=== PATIENT | female | born 1985 | race Caucasian/White ===

== ENCOUNTER 2017-04-16 15:04 | Observation (INO) ==
--- NOTE | 2017-04-16 15:51 | Emergency Department Note ---
Disposition Clinical Impression: Fecal impaction Constipation Qualifiers: Constipation type: unspecified constipation type Qualified Code(s): K59.00 - Constipation, unspecified Disposition: Admitted As Inpatient Condition: Good Time of Disposition: 19:27 Abdominal Pain HPI - General Chief Complaint: ED General Medical Stated Complaint: unable to urinate// unable to have a BM Time Seen by Provider: 04/16/17 15:13 Source: patient Mode of arrival: ambulatory Limitations: no limitations Nursing Notes Reviewed: Yes Vital Signs Reviewed: Yes - History of Present Illness HPI Narrative: Patient is a 32-year-old female with past medical history of chronic constipation. She states that ever since she was a little girl, she has had trouble with bowel movements. If she does not make herself go every 2-3 days, she develops a large stool burden and then is unable to pass large stool ball. She does not follow with a specialist right now. She only takes MiraLAX occasionally. Over the past 2-3 days, patient says "I forgot to make myself have a bowel movement because I was busy." Today, she felt that she needed to use the bathroom and says that she feels like she is trying to pass a softball size stool. She tried digital impaction herself for several hours and was then unable to break up the stool. She also tried Ex-Lax, enema. She did not have any relief with this as well. She states that she has not been able to urinate over the past 24 hours because of being so constipated. She is actively crying on exam and very anxious. She denies any other fevers, chest pain, shortness of breath. She has generalized abdominal discomfort and is also had a couple episodes of nausea and vomiting. She says that she had a similar episode of this in the past and had to come to the ED. At that time, she had an enema milk of molasses and was able to pass a large stool ball but in the process passed out and had a rectal tear after the visit due to passing such a large stool. She says that yesterday while trying to bear down, she had a episode of syncope while on the toilet. Pain Scale: 10 - Related Data Home Medications Medication Instructions Recorded Confirmed No Known Home Drugs 04/16/17 04/16/17 Allergies Allergy/AdvReac Type Severity Reaction Status Date / Time iron AdvReac Vomiting Verified 08/09/15 06:13 All systems ED: reviewed and negative except as stated. Constitutional: Denies: fever Cardiovascular: Denies: chest pain, palpitations Respiratory: Denies: cough, dyspnea Gastrointestinal: Reports: abdominal pain, nausea, vomiting, constipation. Denies: diarrhea Genitourinary: Reports: other (Inability to urinate). Denies: urgency Musculoskeletal: Denies: back pain Integumentary: Denies: rash Neurological: Denies: headache Abdominal Pain PMH - Past Medical History Medical history: Reports: non-contributory Female Surgical History: Reports: [employer] history: Reports: no [employer] history Psychiatric history: Reports: no psych history - Social History Smoking status: Never smoker Alcohol use: Reports: none Drug use: Reports: none Physical Exam - General Limitations: no limitations General appearance: alert, anxious, other (Anxious and crying on exam) - Head Head exam: atraumatic, normocephalic, normal inspection - Eye Eye exam: Present: normal appearance, PERRL, EOMI - ENT ENT exam: normal exam, normal oropharynx, mucous membranes moist - Neck Neck exam: Present: normal inspection, full ROM, trachea midline - Respiratory Respiratory exam: Present: normal lung sounds bilaterally - Cardiovascular Cardiovascular exam: Present: regular rate, normal rhythm, normal heart sounds - Abdominal Exam Abdominal exam: Present: tenderness (Mild generalized tenderness with moderate tenderness and appreciable firmness in the middle lower abdomen) - Rectal Exam Rectal exam: Present: deferred - Extremities Exam Extremities exam: Present: normal inspection, full ROM - Neurological Exam Neurological exam: Present: alert, oriented X3 - Psychiatric Psychiatric exam: Present: anxious - Skin Skin exam: Present: warm, dry, intact, normal color Course Course Narrative: Vitals within normal limits. Physical exam shows an anxious patient with Mild generalized tenderness with moderate tenderness and appreciable firmness in the middle lower abdomen. Digital disimpaction was offered to the patient but she refused. I also offered an enema to the patient and she refused this as well. I discussed that it was probably necessary for digital disimpaction since she is describing a large stool burden that she cannot pass. She says she understood this but did not want to go through that kind of pain. We discussed straight cathetering her to get urine out and then reassessing. She was workup for this plan. We will also obtain a KUB to assess stool burden. Patient was also offered head CT scan by Dr. Mckeon due to syncope and complains of nausea and vomiting but she refused this after discussing risks and benefits. 16:16 patient reassessed after straight catheter. Tach stated that she was only able to get a small amount of urine out. Bedside ultrasound was performed and bladder was collapsed with no residual urine. Patient to do that she did not want pain medication but that she did want topical lidocaine to apply to her rectum to see if this will help with her pain. She declined any other pain medication. She is also still declining digital disimpaction. Currently waiting on KUB and then will reassess. Topical lidocaine has been ordered and patient stated that she will apply this herself. 17:30 XR shows No evidence of bowel obstruction. Significant amount of retained fecal material throughout the colon which is nonspecific but can be seen with constipation. Patient reasssessed. She was willing to try rectal disimpaction but says "she needs time to prepare." Currently waiting on nursing staff to contact me when patient is ready. 18:21 I tried digital disimpaction but was unable to reach the majority of the stool burden. There is a large amount of solid stool but is higher that would block any red rubber tube that could be used for administering milk of molasses enema. I discussed admission to the patient for possible surgical/or management under anesthesia. She was agreeable with this plan. 19:26 Dr. Chaparro accepted. KUB X-Ray 04/16/17 15:33 IMPRESSION: No evidence of bowel obstruction. Significant amount of retained fecal material throughout the colon which is nonspecific but can be seen with constipation. D/ / Varinder Zuleta MD / Varinder Zuleta MD Interpreting Provider: Varinder Zuleta MD Vital Signs Temperature 98.2 F 04/16/17 15:09 Pulse Rate 90 04/16/17 15:09 Respiratory Rate 18 04/16/17 15:09 Blood Pressure 126/60 04/16/17 15:09 O2 Sat by Pulse Oximetry 97 04/16/17 15:09 Temperature 98.2 F 04/16/17 20:18 Pulse Rate 61 04/16/17 20:18 Respiratory Rate 15 04/16/17 20:18 Blood Pressure 102/64 04/16/17 20:18 O2 Sat by Pulse Oximetry 96 04/16/17 20:18 Oxygen Delivery Oxygen Delivery Room Air Abdominal Pain - MDM Narrative Medical decision making narrative: Vitals within normal limits. Physical exam shows an anxious patient with Mild generalized tenderness with moderate tenderness and appreciable firmness in the middle lower abdomen. Digital disimpaction was offered to the patient but she refused. I also offered an enema to the patient and she refused this as well. I discussed that it was probably necessary for digital disimpaction since she is describing a large stool burden that she cannot pass. She says she understood this but did not want to go through that kind of pain. We discussed straight cathetering her to get urine out and then reassessing. She was workup for this plan. We will also obtain a KUB to assess stool burden. Patient was also offered head CT scan by Dr. Mckeon due to syncope and complains of nausea and vomiting but she refused this after discussing risks and benefits. 16:16 patient reassessed after straight catheter. Tach stated that she was only able to get a small amount of urine out. Bedside ultrasound was performed and bladder was collapsed with no residual urine. Patient to do that she did not want pain medication but that she did want topical lidocaine to apply to her rectum to see if this will help with her pain. She declined any other pain medication. She is also still declining digital disimpaction. Currently waiting on KUB and then will reassess. Topical lidocaine has been ordered and patient stated that she will apply this herself. 17:30 XR shows No evidence of bowel obstruction. Significant amount of retained fecal material throughout the colon which is nonspecific but can be seen with constipation. Patient reasssessed. She was willing to try rectal disimpaction but says "she needs time to prepare." Currently waiting on nursing staff to contact me when patient is ready. 18:21 I tried digital disimpaction but was unable to reach the majority of the stool burden. There is a large amount of solid stool but is higher that would block any red rubber tube that could be used for administering milk of molasses enema. I discussed admission to the patient for possible surgical/or management under anesthesia. She was agreeable with this plan. 19:26 Dr. Chaparro accepted. - Medical Records Medical records reviewed: Yes I reviewed the patient's medical records. - Lab Data Lab results reviewed: Yes I reviewed the patient's lab results. Result diagrams: 04/16/17 18:30 04/16/17 18:30 Lab Results 04/16/17 04/16/17 04/16/17 Range/Units 16:03 16:03 18:30 WBC 6.9 (4.3-11.1) K/mcL RBC 4.31 (3.82-4.97) M/mcL Hgb 12.9 (11.5-15.4) g/dL Hct 37.7 (35.3-44.9) % MCV 87.5 (83.0-100.0) fL MCH 29.9 (28.0-33.3) pg MCHC 34.2 (31.6-35.5) g/dL RDW 11.5 (11.5-14.5) % Plt Count 189 (140-400) K/mcL MPV 11.6 (9.4-12.4) fL Immature Gran % 0.1 (0-4) % Seg Neutrophils % 67.7 % Lymphocytes % 26.9 % Monocytes % 3.4 % Eosinophils % 1.5 % Basophils % 0.4 % Neutrophils # 4.6 (1.6-8.9) K/mcL Lymphocytes # 1.8 (0.6-4.6) K/mcL Monocytes # 0.2 (0.0-1.3) K/mcL Eosinophils # 0.1 (0.0-0.6) K/mcL Basophils # 0.0 (0.0-0.2) K/mcL PT (9.4-12.1) Seconds INR APTT (26.0-36.0) Seconds Sodium (136-145) mEq/L Potassium (3.5-4.5) mEq/L Chloride (98-109) mEq/L Carbon Dioxide (19-29) mEq/L BUN (7-20) mg/dL Creatinine (0.57-1.11) mg/dL Est GFR ( Amer) (> 60) Est GFR (Non-Af Amer) (> 60) BUN/Creatinine Ratio (6-26) Glucose (70-99) mg/dL Calculated Osmolality (280-300) Calcium (8.6-10.8) mg/dL Urine Color Dark Yellow (Yellow) Urine Clarity Clear (Clear) Urine pH 6.0 (5.0-8.0) pH Units Ur Specific [place] > 1.030 H (1.010-1.025) Urine Protein Negative (Neg-Trace) mg/dL Urine Glucose (UA) Normal (Normal) mg/dL Urine Ketones Negative (Negative) mg/dL Urine Blood Negative (Negative) Urine Nitrite Negative (Negative) Urine Bilirubin Small H (Negative) Urine Urobilinogen Normal (Normal) mg/dL Ur Leukocyte Esterase Negative (Negative) Ur Culture Indicated? NO (NO) Urine Test Negative (Negative) 04/16/17 04/16/17 Range/Units 18:30 18:30 WBC (4.3-11.1) K/mcL RBC (3.82-4.97) M/mcL Hgb (11.5-15.4) g/dL Hct (35.3-44.9) % MCV (83.0-100.0) fL MCH (28.0-33.3) pg MCHC (31.6-35.5) g/dL RDW (11.5-14.5) % Plt Count (140-400) K/mcL MPV (9.4-12.4) fL Immature Gran % (0-4) % Seg Neutrophils % % Lymphocytes % % Monocytes % % Eosinophils % % Basophils % % Neutrophils # (1.6-8.9) K/mcL Lymphocytes # (0.6-4.6) K/mcL Monocytes # (0.0-1.3) K/mcL Eosinophils # (0.0-0.6) K/mcL Basophils # (0.0-0.2) K/mcL PT 13.0 H (9.4-12.1) Seconds INR 1.2 APTT 33.4 (26.0-36.0) Seconds Sodium 139 (136-145) mEq/L Potassium 3.6 (3.5-4.5) mEq/L Chloride 108 (98-109) mEq/L Carbon Dioxide 21 (19-29) mEq/L BUN 9 (7-20) mg/dL Creatinine 0.62 (0.57-1.11) mg/dL Est GFR ( Amer) > 60 (> 60) Est GFR (Non-Af Amer) > 60 (> 60) BUN/Creatinine Ratio 15 (6-26) Glucose 97 (70-99) mg/dL Calculated Osmolality 287 (280-300) Calcium 9.3 (8.6-10.8) mg/dL Urine Color (Yellow) Urine Clarity (Clear) Urine pH (5.0-8.0) pH Units Ur Specific [place] (1.010-1.025) Urine Protein (Neg-Trace) mg/dL Urine Glucose (UA) (Normal) mg/dL Urine Ketones (Negative) mg/dL Urine Blood (Negative) Urine Nitrite (Negative) Urine Bilirubin (Negative) Urine Urobilinogen (Normal) mg/dL Ur Leukocyte Esterase (Negative) Ur Culture Indicated? (NO) Urine Test (Negative) - Radiology Data Radiology results reviewed: Yes I reviewed the patient's radiology results. KUB X-Ray 04/16/17 15:33 IMPRESSION: No evidence of bowel obstruction. Significant amount of retained fecal material throughout the colon which is nonspecific but can be seen with constipation. D/ / Varinder Zuleta MD / Varinder Zuleta MD Interpreting Provider: Varinder Zuleta MD S.Pet[facility] - [place] Situation: Demographics, MOA Background: Presenting Complaint, Relevant PMH, Meds, & Allergies Assessment: Vital Signs, Course and respsone to treatment, Exam Concerns, Patient/Family Expectation, Pertinant Lab Results, Outstanding Labs Recommendation: Barrier(s) to disposition, Recommendation based on pending studies, treatments, or consults S.B.APavan Report Given to: Dr. Shankar Spivey Repor Time: 19:28 Attestation Statement - Attestation Attestation: I, Florencio Mckeon, examined this patient and my medical decision-making was reviewed with the ARCHAEOLOGIST/PA/Advanced Practice Nurse/Resident Physician. I agree with the documented findings, disposition and treatment plan as described except to the extent set forth below. 32-year-old female presents with concerns of constipation. Patient states that she has had similar pain multiple times in the past when she has been constipated. She has had to be admitted once before this for disimpaction. It is extremely anxious in the emergency department and feels like she has to have a bowel movement, she states that she has been unable to urinate because of the pressure in her lower abdomen. Patient is significantly concerned about possible urinary tract infection however she denies fever, chills, dysuria over the past few days.. X-ray of the abdomen shows a large amount of stool. Rectal exam performed by the resident reveals a large equal impaction just proximal to that is reachable with finger. Patient was significantly anxious and tearful during the evaluation. Patient will require further stool softeners and possible disimpaction under anesthesia. Patient admitted to the hospitalist for further care
[2017-04-16] MEDS ORDERED: Lidocaine TOPICAL Soln 50 ML BOTTLE TP ONE (16:14)
[2017-04-16] MEDS ORDERED: Lidocaine Jelly 6 ml Syringe TP ONE (16:35)
[2017-04-16] MEDS ORDERED: diazePAM 10 MG/2 ML SYRINGE IVP ONE (16:37)
[2017-04-16 16:39] LABS: Bilirubin,Urine Small (Negative); Blood,Urine Negative (Negative); Clarity,Urine Clear (Clear); Color,Urine Dark Yellow (Yellow); Glucose,Urine (UA) Normal (Normal); Ketones,Urine Negative (Negative); Leukocyte Esterase,Urine Negative (Negative); Nitrite,Urine Negative (Negative); Protein,Urine Negative (Neg-Trace); Specific Gravity,Urine > 1.030 (1.010-1.025); Urobilinogen,Urine Normal (Normal)
[2017-04-16] MEDS ORDERED: *HR* LORazepam 2 MG/ML VIAL IVP ONE (16:58)
[2017-04-16] MEDS ORDERED: Ondansetron 4 MG/2 ML VIAL IVP ONE (16:58)
[2017-04-16] MEDS ORDERED: diazePAM 10 MG/2 ML SYRINGE IVP STA (17:02)
[2017-04-16] MEDS ORDERED: Lidocaine Viscous Oral Soln 15 ML SOLUTION MM ONE (17:05)
[2017-04-16 18:48] LABS: Basophils % 0.4 %; Eosinophils # 0.1 K/mcL (0.0-0.6); Eosinophils % 1.5 %; Hematocrit 37.7 % (35.3-44.9); Hemoglobin 12.9 g/dL (11.5-15.4); Immature Granulocytes % 0.1 % (0-4); Lymphocytes # 1.8 K/mcL (0.6-4.6); Lymphocytes % 26.9 %; Mean Corpuscular HGB Conc 34.2 g/dL (31.6-35.5); Mean Corpuscular Hemoglobin 29.9 pg (28.0-33.3); Mean Corpuscular Volume 87.5 fL (83.0-100.0); Mean Platelet Volume 11.6 fL (9.4-12.4); Monocytes # 0.2 K/mcL (0.0-1.3); Monocytes % 3.4 %; Neutrophils # 4.6 K/mcL (1.6-8.9); Platelet Count 189 K/mcL (140-400); Red Blood Count 4.31 M/mcL (3.82-4.97); Red Cell Distribution Width 11.5 % (11.5-14.5); Segmented Neutrophils % 67.7 %
[2017-04-16 18:52] LABS: INR 1.2
[2017-04-16 18:54] LABS: Activated Partial Thrombo Time 33.4 Seconds (26.0-36.0)
[2017-04-16 18:55] LABS: BUN/Creatinine Ratio 15 (6-26); Blood Urea Nitrogen 9 mg/dL (7-20); Calcium 9.3 mg/dL (8.6-10.8); Carbon Dioxide 21 mEq/L (19-29); Chloride 108 mEq/L (98-109); Glucose 97 mg/dL (70-99); Osmolality,Calculated 287 (280-300); Potassium 3.6 mEq/L (3.5-4.5); Sodium 139 mEq/L (136-145); eGFR For African Americans > 60 (> 60); eGFR For Non-African Americans > 60 (> 60)
[2017-04-16] MEDS ORDERED: Ketorolac 15 MG/ML VIAL IVP ONE (21:15)
[2017-04-16] MEDS ORDERED: Ondansetron 4 MG/2 ML VIAL IVP PRN (21:22)
[2017-04-16] MEDS ORDERED: Lactulose Oral Soln 20 GM/30 ML UDC PO PRN (21:25)
--- NOTE | 2017-04-16 21:30 | Internal Med History&Physical ---
Date of Encounter: 04/16/17 Time of Encounter: 21:27 Assessment and Plan (1) Fecal impaction Current visit: Yes Status: Acute Patient has fecal impaction. Repeated attempts at manual disinfection failed. Patient has been receiving stool softeners over the past 4 days without response. Patient has some nausea, denies any vomiting. Patient is passing gas. No clinical or radiological evidence of bowel obstruction. Patient is refusing Golytely or any more will softeners. I will consult gastroenterology for their input regarding disimpaction under sedation. Avoid opiates Internal Medicine - H&P: HPI Chief complaint: constipation History of present illness: Ms. Arriaga is a 32 year old female with long history of constipation on stool softners regularly and moves her bowels every 2 to 4 days. Patient presents to the emergency room today with constipation. She had not had a bowel movement in 9 days. Patient continues to pass gas. She has some nausea only during straining while attempting to have a bowel movement but no otherwise nausea. She denies any vomiting. She also abdominal discomfort in the lower abdomen. Patient mentioned that she was busy with her kids and has not taken miralax for the past 2 weeks. She started taking stool softener's and suppositories at home during the past 4 days without improvement. manual disimpaction and enemas in the emergency room failed. Past Med Surg Social Fam HX - Past Medical History Medical history: non-contributory Psychiatric history: no psych history - Past Surgical History Surgical History: - Social History Smoking Status: Never smoker Smokeless Tobacco Status: No Alcohol use: none Drug use: none - Family History Maternal Grandmother Living Status: Cause of : colon cancer Mother Living Status: Still Living Hx Family Cardiac Disorders: Yes (mitral valve prolapse) Internal Medicine - H&P: Meds No Known Home Drugs 04/16/17 [History] Allergies iron Adverse Reaction (Verified 08/09/15 06:13) Vomiting All Systems PM: A 10-system review of systems was performed and is negative for pertinent findings except as documented above in the HPI. - Constitutional Additional comments: 10 point review of systems is negative except for HPI - Constitutional Vitals: Temp Pulse Resp BP Pulse Ox 98.2 F 61 15 102/64 96 04/16/17 20:18 04/16/17 20:18 04/16/17 20:18 04/16/17 20:18 04/16/17 20:30 Exam: Gen.: patient is alert oriented times 3 not in distress cardiac: Normal S1, S2, no additional sounds or murmurs chest: Clear to auscultation Abdomen: Soft, some tederness in LLQ. No rebound tenderness guarding or rigidity. lower extremity Lax calf muscles no swelling Neuro: no focal deficits Internal Med - H&P Results - Labs CBC & Chem 7: 04/16/17 18:30 04/16/17 18:30
[2017-04-16] MEDS: 0.9 % Sodium Chloride 1,000 ML IVC SCH (22:22)
[2017-04-17] MEDS: Ketorolac 15 MG/ML VIAL IVP PRN ×3 (03:43→17:02)
--- NOTE | 2017-04-17 10:34 | Internal Med Progress Note ---
Date of Encounter: 04/17/17 Time of Encounter: 10:32 - Assessment and plan (1) Fecal impaction Current Visit: Yes Status: Acute Assessment and plan: Patient has fecal impaction. Repeated attempts at manual disinfection failed. Patient has been receiving stool softeners over the past 4 days without response. Patient has some nausea, denies any vomiting. Patient is passing gas. No clinical or radiological evidence of bowel obstruction. Patient is refusing Golytely or any more will softeners. I will consult gastroenterology for their input regarding disimpaction under sedation. Avoid opiates I have discussed the case with Dr. Shah this morning. He will be evaluating patient. Patient still has no bowel movement. Still passing gas. No vomiting. Bowel sounds are present. continue hydration - Subjective Interval history: Patient seen and examined. No bowel movements yet. No vomiting. She is passing gas. Await gastroenterology recommendations. - Constitutional Vitals: Temp Pulse Resp BP Pulse Ox 97.9 F 74 16 90/51 96 04/17/17 06:36 04/17/17 06:36 04/17/17 06:36 04/17/17 06:36 04/17/17 06:36 Exam: Gen.: patient is alert oriented times 3 not in distress. Cardiac: normal S1 S2 no additional sounds or murmurs chest: fair air entry. no active wheezing. No crackles or bronchial breathing. abdomen: minimal tenderness in lower left abdomen normal bowel sounds neuro: no focal deficit Internal Medicine: Result - Labs CBC & Chem 7: 04/16/17 18:30 04/16/17 18:30 - ABG Interpretation ABG results: PT/INR, D-dimer PT 13.0 Seconds (9.4-12.1) H 04/16/17 18:30 Consult Discharge Plan - Plan Referrals: NO,PCP [Primary Care Provider] -
--- NOTE | 2017-04-17 11:55 | Gastroenterology Consult Note ---
<BautistaHarvey Haines - Last Filed: 04/17/17 11:51> Date of Encounter: 04/17/17 Time of Encounter: 10:30 - Assessment and plan (1) Fecal impaction Status: Acute Assessment and plan: Plan for disimpaction today with sedation. Keep NPO. (2) Constipation Status: Acute Assessment and plan: Start a daily fiber supplement and use MiraLAX up to twice a day. Use fiber and Miralax daily for 3-5 days, if symptoms are not improved, add in second dose of Miralax daily. Follow up in GI office 2 weeks after dicharge. Qualifiers: Constipation type: unspecified constipation type Qualified Code(s): K59.00 - Constipation, unspecified - Time Spent With Patient Total time spent is greater than 50% in coordination of care (as documented) at patient's floor/unit and/or counseling patient: GI History of Present Illness - Data of Consult Patient: new to practice Consult date: 04/17/17 Requesting Physician: Samantha Barrios - Consult Narrative Reason for consult: Fecal impaction History of present illness: Ms. Arriaga is a 32 year old female with PMHx of constipation on stool softeners and has BM every 2-4 days. She presented to the ED with c/o constipation and states she had not had BM in 9 days, but is passing gas. She has some nausea only during straining while attempting to have a bowel movement but no otherwise nausea. She denies vomiting. Patient mentioned that she was busy with her kids and has not taken Miralax for the past 2 weeks. She started taking stool softener's and suppositories at home during the past 4 days without improvement. Manual disimpaction and enemas in the emergency room failed. Patient is refusing Golytely or any more stool softeners. Procedures: None NSAIDs: None Anticoagulation: None Past Med Surg Social Fam HX - Past Medical History Medical history: non-contributory Psychiatric history: no psych history - Past Surgical History Surgical History: - Social History Smoking Status: Never smoker Smokeless Tobacco Status: No Alcohol use: none Drug use: none - Family History Maternal Grandmother Living Status: Cause of : colon cancer Mother Living Status: Still Living Hx Family Cardiac Disorders: Yes (mitral valve prolapse) - Gastrointestinal Gastrointestinal: Present: as per HPI - Constitutional Constitutional: as per HPI - EENT Eyes: as per HPI Ears: Present: as per HPI Nose, mouth and throat: Present: as per HPI - Cardiovascular Cardiovascular ROS: Present: as per HPI - Respiratory Respiratory IM: Present: as per HPI - Genitourinary Genitourinary: Absent: change in color, Urinary frequency - Neurological ROS Neurological GI: Present: as per HPI - Hematologic/Lymphatic Hematologic/Lymphatic pediatric: Present: as per HPI - Musculoskeletal Musculoskeletal ROS GI: Present: as per HPI - Integumentary Integumentary GI: Present: as per HPI - Psychiatric ROS Psychiatric GI: Present: as per HPI - Endocrine Endocrine IM: Present: as per HPI - Constitutional Vitals: Temp Pulse Resp BP Pulse Ox 97.4 F L 61 16 102/58 94 04/17/17 10:39 04/17/17 10:39 04/17/17 10:39 04/17/17 10:39 04/17/17 10:39 General appearance: Present: cooperative, A&O X 3, no acute distress, answers questions appropriately - Head Head exam: Present: atraumatic, normocephalic - Eye Eye exam: Present: normal appearance, sclera anicteric - ENT ENT exam: Present: mucous membranes dry - Neck Neck exam general surgery: Present: normal inspection, trachea midline - Respiratory Respiratory exam: Present: CTAB. Absent: rales, rhonchi, wheezes - Cardiovascular Cardiovascular exam: Present: RRR, +S1, +S2 - GI/Abdominal GI/Abdominal exam: Present: soft, tenderness (LLQ), no peritoneal signs. Absent : distended, firm, guarding - Rectal Rectal exam: Present: deferred - Extremities Exam Extremities exam: Present: warm - Neurological Exam Neurological exam: Present: no focal deficits - Psychiatric Psychiatric exam: Present: normal affect, normal mood - Skin Skin exam: Present: dry, intact, normal color, warm Results - Labs CBC & Chem 7: 04/16/17 18:30 04/16/17 18:30 Labs: Last Result Calcium 9.3 mg/dL (8.6-10.8) 04/16/17 18:30 Entire Visit Hgb 12.9 g/dL (11.5-15.4) 04/16/17 18:30 Hct 37.7 % (35.3-44.9) 04/16/17 18:30 PT 13.0 Seconds (9.4-12.1) H 04/16/17 18:30 - ABG ABG results: PT/INR, D-dimer PT 13.0 Seconds (9.4-12.1) H 04/16/17 18:30 Consult Discharge Plan - Plan Instructions: Laxative, Stimulant (By mouth), Polyethylene Glycol 3350 (By mouth), Constipation (DC), High Fiber Diet (DC) Additional Instructions: Follow-up as instructed for new primary care provider Referrals: NO,PCP [Primary Care Provider] - (Please call the physician referral line at [phone] and scheduled an appointment in 5-7 days.) Prescriptions: Ibuprofen [Motrin] 600 mg PO Q8HR PRN #30 tab PRN Reason: Pain Calcium Polycarbophil [Fibercon] 1,250 mg PO DAILY #60 tablet Hydrocortisone Acetate [Anucort-HC] 25 mg RC BID #28 supp.rect Ondansetron HCl 4 mg PO Q6H PRN #12 tablet PRN Reason: Nausea And Vomiting Peg 3350/Na Sulf,Bicarb,Cl/KCl [Golytely Packet] 1 each PO DAILY #10 powd.pack Polyethylene Glycol 3350 [MiraLAX Powder Bulk 17.9 Oz] 1 scoop PO DAILY #510 gm <Libertad Shah - Last Filed: 04/23/17 13:47> Date of Encounter: 04/17/17 Time of Encounter: 11:00 - Time Spent With Patient Total time spent is greater than 50% in coordination of care (as documented) at patient's floor/unit and/or counseling patient: GI History of Present Illness - Data of Consult Requesting Physician: Samantha Barrios - Consult Narrative History of present illness: Ms. Arriaga is a 32 year old female - Constitutional Vitals: Temp Pulse Resp BP Pulse Ox 98.1 F 51 16 92/55 96 04/18/17 07:21 04/18/17 07:21 04/18/17 07:21 04/18/17 07:21 04/18/17 07:21 Results - Labs CBC & Chem 7: 04/16/17 18:30 04/16/17 18:30 Labs: Last Result Calcium 9.3 mg/dL (8.6-10.8) 04/16/17 18:30 Entire Visit Hgb 12.9 g/dL (11.5-15.4) 04/16/17 18:30 Hct 37.7 % (35.3-44.9) 04/16/17 18:30 PT 13.0 Seconds (9.4-12.1) H 04/16/17 18:30 - ABG ABG results: PT/INR, D-dimer PT 13.0 Seconds (9.4-12.1) H 04/16/17 18:30 - Attending Attestation I examined this patient and my medical decision-making was reviewed with the COLLAR FELLER/PA/Advanced Practice Nurse/Resident Physician. I agree with the documented findings, disposition and treatment plan as described except to the extent set forth below.
--- NOTE | 2017-04-17 12:34 | Discharge Summary ---
Date of Encounter: 04/17/17 Time of Encounter: 12:32 - Discharge Diagnosis (1) Fecal impaction Priority: Primary Status: Acute - Discharge Medications Prescriptions: Ondansetron [Zofran] 4 mg PO Q6HR PRN #10 tab PRN Reason: Nausea Polyethylene Glycol 3350 [MiraLAX Powder Bulk 17.9 Oz] 1 scoop PO DAILY #510 gm Home Medications: Ondansetron [Zofran] 4 mg PO Q6HR PRN #10 tab 04/17/17 [Rx] Polyethylene Glycol 3350 [MiraLAX Powder Bulk 17.9 Oz] 1 scoop PO DAILY #510 gm 04/17/17 [Rx] Allergies/Adverse Reactions: Allergies iron Adverse Reaction (Verified 08/09/15 06:13) Vomiting Date of admission: 04/16/17 19:53 Primary care physician: PCP NO Consults: 04/16/17 21:22 Consult to Gastroenterology [CONS] Routine Consulting Provider: Gastroenterology Freida Reason for Consult: constipation. disimpaction under anesthesia? Call Completed: No 04/17/17 11:00 consult to honey producer [Consult to Nutrition] [CONS] Routine Comment: Consulting Provider: NUTRITION Reason for Dietary Consult: Diet Education - Patient Status Disposition: Home, Self-Care Condition: Good - Discharge Instructions Follow Up With: NO,PCP [Primary Care Provider] - Interval History: Patient has presented yesterday to the hospital with constipation. She has not had a bowel movement for 9 days. She is passing gas. No evidence bowel obstruction. Repeated attempts at taking laxatives at home, suppositories, manual disinfection in the emergency room failed. patient refuses to take any more stool softeners or golytely. Case has been discussed with Dr. Shah who will perform fecal infection under sedation today. Patient will only be discharged today if recommended by Dr. Shah after procedure. It was recommended to take Miralax up to 2 times a day. Fiber diet. Await further gastroenterology recommendations. Hospital course: Ms. Arriaga is a 32 year old female - Time Spent with Patient Total time spent providing and/or coordinating discharge services: - Constitutional Vitals: Temp Pulse Resp BP Pulse Ox 97.4 F L 61 16 102/58 94 04/17/17 10:39 04/17/17 10:39 04/17/17 10:39 04/17/17 10:39 04/17/17 10:39 Exam: Gen.: patient is alert oriented times 3 not in distress. Cardiac: normal S1 S2 no additional sounds or murmurs chest: fair air entry. no active wheezing. No crackles or bronchial breathing. abdomen: tenderness in LLQ neuro: no focal deficit
--- NOTE | 2017-04-17 14:35 | Anesthesia Evaluation PreOp ---
Date of Encounter: 04/17/17 Time of Encounter: 14:34 - Past History Planned Operation: sigmoid decompaction Cardiac History: Denies any Significant Hx Pulmonary History: Denies Any Significant HX TRANSIT MIX OPERATOR History: Denies Any Significant HX Other Medical History: Renal (medullary sponge kidney) Anesthesia History: No Prior Anesthetic Complications, Past Anesthesia (general anesthesia for C-S) Alcohol Use: none Drug use: none Medications and Allergies Ondansetron [Zofran] 4 mg PO Q6HR PRN #10 tab 04/17/17 [Rx] Polyethylene Glycol 3350 [MiraLAX Powder Bulk 17.9 Oz] 1 scoop PO DAILY #510 gm 04/17/17 [Rx] Allergies iron Adverse Reaction (Verified 08/09/15 06:13) Vomiting - Meds/Allergy Pre-op Review Medications Reviewed: Yes Allergies Reviewed: Yes Beta Blockers on Current Med List: No Anesthesia Results - Labs 04/16/17 18:30 04/16/17 18:30 Anesthesia Exam Last Vital Signs Temp 97.4 F L 04/17/17 14:27 Pulse 61 04/17/17 14:27 Resp 16 04/17/17 14:27 BP 119/71 04/17/17 14:27 Pulse Ox 98 04/17/17 14:27 Weight: 52 kg NPO (# of Hours): >>8 hrs - HEENT Pupil (Motor): Pupils equal, EOMI Mallampati: I Teeth: Normal, Prosthesis (permanent retainer) Oral Opening: Greater than 3 - TRANSIT MIX OPERATOR LOC: Oriented TRANSIT MIX OPERATOR Motor: Normal RUE, Normal LUE, Normal RLE, Normal LLE, Normal Face TRANSIT MIX OPERATOR Sensory: Normal: RUE, LUE, RLE, LLE, Face - Cardiac Rhythm: Regular Murmur: None - Pulmonary Breath Sounds: bilateral Clear Respiratory Effort: Symmetrical Anesthesia Assess/Plan ASA Score: 2 Modified [place] Scale for Level of Consciousness: Cooperative, oriented, and tranquil Anesthetic Plan: MAC Monitoring Plan: Standard Monitors Recovery Plan: PACU
[2017-04-17] MEDS ORDERED: SODIUM CHLORIDE/NAHCO3/KCL/PEG 4,000 ML SOLN.RECON PO SCH (15:15)
[2017-04-17] MEDS: *HR* Heparin 5,000 UNIT/ML VIAL SQ SCH (17:01)
[2017-04-17] MEDS: 0.9 % Sodium Chloride 1,000 ML IVC SCH ×2 (21:21→21:26)
[2017-04-18] MEDS: *HR* Heparin 5,000 UNIT/ML VIAL SQ SCH (06:38)
[2017-04-18] MEDS: 0.9 % Sodium Chloride 1,000 ML IVC SCH (06:42)
[2017-04-18 07:22] VITALS: BP 92/55
--- NOTE | 2017-04-18 09:30 | Discharge Summary ---
Date of Encounter: 04/18/17 Time of Encounter: 08:45 - Discharge Diagnosis (1) Fecal impaction Priority: Primary Status: Resolved Comments: s/p disimpaction under anesthesia per GI. (2) Constipation Priority: Secondary Status: Chronic Qualifiers: Constipation type: unspecified constipation type Qualified Code(s): K59.00 - Constipation, unspecified - Discharge Medications Prescriptions: Ibuprofen [Motrin] 600 mg PO Q8HR PRN #30 tab PRN Reason: Pain Calcium Polycarbophil [Fibercon] 1,250 mg PO DAILY #60 tablet Hydrocortisone Acetate [Anucort-HC] 25 mg RC BID #28 supp.rect Ondansetron HCl 4 mg PO Q6H PRN #12 tablet PRN Reason: Nausea And Vomiting Peg 3350/Na Sulf,Bicarb,Cl/KCl [Golytely Packet] 1 each PO DAILY #10 powd.pack Polyethylene Glycol 3350 [MiraLAX Powder Bulk 17.9 Oz] 1 scoop PO DAILY #510 gm Home Medications: Calcium Polycarbophil [Fibercon] 1,250 mg PO DAILY #60 tablet 04/18/17 [Rx] Hydrocortisone Acetate [Anucort-HC] 25 mg RC BID #28 supp.rect 04/18/17 [Rx] Ibuprofen [Motrin] 600 mg PO Q8HR PRN #30 tab 04/18/17 [Rx] Ondansetron HCl 4 mg PO Q6H PRN #12 tablet 04/18/17 [Rx] Peg 3350/Na Sulf,Bicarb,Cl/KCl [Golytely Packet] 1 each PO DAILY #10 powd.pack 04/18/17 [Rx] Polyethylene Glycol 3350 [MiraLAX Powder Bulk 17.9 Oz] 1 scoop PO DAILY #510 gm 04/18/17 [Rx] Allergies/Adverse Reactions: Allergies iron Adverse Reaction (Verified 08/09/15 06:13) Vomiting Date of admission: 04/16/17 19:53 Primary care physician: PCP NO Consults: 04/16/17 21:22 Consult to Gastroenterology [CONS] Routine Consulting Provider: Gastroenterology Freida Reason for Consult: constipation. disimpaction under anesthesia? Call Completed: No 04/17/17 11:00 consult to planning consultant [Consult to Nutrition] [CONS] Routine Comment: Consulting Provider: NUTRITION Reason for Dietary Consult: Diet Education Discharging clinician: Samantha Smith Anticipated date of discharge: 04/18/17 - Patient Status Disposition: Home, Self-Care Condition: Good Functional capacity at discharge: independent ambulation Overall status at discharge: patient is back to baseline - Discharge Instructions Follow Up With: NO,PCP [Primary Care Provider] - (Please call the physician referral line at [phone] and scheduled an appointment in 5-7 days.) Additional Instructions: Follow-up as instructed for new primary care provider - Diet and Activity Activity: increase activity as tolerated Diet: regular diet Hospital course: Ms. Arriaga is a 32 year old female with only past medical history of constipation. Patient presented to the emergency department chief complaint constipation. She had not had a bowel movement in 9 days and typically has one every 2-4 days. She was still flatulent and had nausea only while straining to have a bowel movement but otherwise did not have nausea. She denied any vomiting. She also complained of lower abdominal discomfort. Patient stating that she had been busy taking care of her 4 children and had not taken her MiraLAX for the past 2 weeks prior to presentation. Patient had started taking stool softeners and suppositories at home for the past 4 days prior to presentation without improvement. In the emergency department, manual disimpaction and enemas proved unsuccessful and the patient was admitted to the hospitalist service for further evaluation and management. KUB revealing large amount of fecal material without evidence of obstruction. GI was brought on board who performed a fecal disimpaction under anesthesia. Patient was then observed overnight and was able to tolerate a regular diet prior to discharge. She was sent on fiber, MiraLAX, and GoLYTELY as instructed. She was also given Zofran and annual court for her rectal irritation and friability. She had another large, hard bowel movement after her procedure. She was discharged home in stable condition with close outpatient follow-up recommended. ITS Impressions KUB X-Ray 04/16/17 15:33 IMPRESSION: No evidence of bowel obstruction. Significant amount of retained fecal material throughout the colon which is nonspecific but can be seen with constipation. D/ / Varinder Zuleta MD / Varinder Zuleta MD Interpreting Provider: Varinder Zuleta MD Fecal impaction impression: Impaction of stool. Recommendation: Daily MiraLAX and GoLYTELY prep for couple days to clean her out. - Time Spent with Patient Total time spent providing and/or coordinating discharge services: - Constitutional Vitals: Temp Pulse Resp BP Pulse Ox 98.1 F 51 16 92/55 96 04/18/17 07:21 04/18/17 07:21 04/18/17 07:21 04/18/17 07:21 04/18/17 07:21 General appearance: Present: A&O X 3, pleasant, no acute distress, answers questions appropriately - Head Head exam: Present: atraumatic, normocephalic - Eye Eye exam: Present: PERRL, conjuntiva pink, sclera anicteric Pupils: Present: PERRL - Neck Neck exam general surgery: Present: supple, trachea midline. Absent: lymphadenopathy - Respiratory Respiratory exam: Present: CTAB. Absent: accessory muscle use, rales, respiratory distress, rhonchi, wheezes - Cardiovascular Cardiovascular exam: Present: RRR, +S1, +S2. Absent: diastolic murmur, gallop, rubs, systolic murmur - GI/Abdominal GI/Abdominal exam: Present: normal bowel sounds, soft, tenderness (lower abd), no peritoneal signs. Absent: distended - Extremities Exam Extremities exam: Present: warm, radial pulses palpable and symetrical. Absent : calf tenderness, cyanotic, pedal edema - Neurological Exam Neurological exam: Present: alert, CN II-XII intact, normal gait, oriented X3, no focal deficits, strengths equal and symetr throughout. Absent: pronater drift, facial droop, speech deficit - Skin Skin exam: Present: dry, intact, normal color, warm
[2017-04-18] MEDS ORDERED: *HR* Propofol 500 MG/50 ML BOTTLE IVC ONE (11:03)
== END 2017-04-18 11:04 | disposition home or self-care (01) ==
LOC: 3BNU 15:04 → EMEROO 15:04 → 3BNU 19:31
PROVIDERS: ADMIT Hospitalist; ATTEND Nurse Practitioner Family

== ENCOUNTER 2018-03-04 09:51 | Inpatient (IN) ==
[2018-03-04] MEDS ORDERED: CeFAZolin Premix DUPLEX 2,000 MG/50 ML BAG IVPB ONE (10:29)
[2018-03-04] MEDS ORDERED: Famotidine 20 MG/2 ML VIAL IVP ONE (10:29)
[2018-03-04] MEDS ORDERED: Oxytocin 20 units/ LR 1000 mL 20 UNIT/1,000 ML BAG IVC ONE (10:29)
[2018-03-04] MEDS ORDERED: Ringers Solution, Lactated 1,000 ML IVC ONE (10:29)
[2018-03-04] MEDS ORDERED: Metoclopramide 10 MG/2 ML VIAL IVP ONE (10:29)
[2018-03-04] MEDS ORDERED: Ringers Solution, Lactated 1,000 ML IVC SCH (10:30)
[2018-03-04] MEDS ORDERED: Oxytocin 20 units/ LR 1000 mL 20 UNIT/1,000 ML BAG IVC SCH ×2 (10:30→15:28)
--- NOTE | 2018-03-04 10:46 | Anesthesia Evaluation PreOp ---
Date of Encounter: 03/04/18 Time of Encounter: 10:45 - Past History Planned Operation: Repeat Cardiac History: Denies any Significant Hx, Other (Anemia) Pulmonary History: Denies Any Significant HX PRODUCTION OPERATOR History: Denies Any Significant HX Other Medical History: Denies Any Significant HX Anesthesia History: No Prior Anesthetic Complications : Yes (39 weeks ) Test: Positive Alcohol Use: none Drug use: none Medications and Allergies Calcium Polycarbophil [Fibercon] 1,250 mg PO DAILY #60 tablet 04/18/17 [Rx] Hydrocortisone Acetate [Anucort-HC] 25 mg RC BID #28 supp.rect 04/18/17 [Rx] Ibuprofen [Motrin] 600 mg PO Q8HR PRN #30 tab 04/18/17 [Rx] Ondansetron HCl 4 mg PO Q6H PRN #12 tablet 04/18/17 [Rx] Peg 3350/Na Sulf,Bicarb,Cl/KCl [Golytely Packet] 1 each PO DAILY #10 powd.pack 04/18/17 [Rx] Polyethylene Glycol 3350 [MiraLAX Powder Bulk 17.9 Oz] 1 scoop PO DAILY #510 gm 04/18/17 [Rx] HYDROcodone/Acet 5/325 mg [[place] 5-325 mg] 1 tab PO Q6H PRN #15 tab 08/05/17 [Rx ] 3 Allergy/AdvReac Type Severity Reaction Status Date / Time iron AdvReac Vomiting Verified 08/09/15 06:13 - Meds/Allergy Pre-op Review Medications Reviewed: Yes Allergies Reviewed: Yes Beta Blockers on Current Med List: No Anesthesia Results - Labs Laboratory Tests 08/04/17 08/04/17 22:54 22:54 Hgb 11.7 Hct 34.4 L Plt Count 219 Sodium 137 Potassium 4.1 BUN 9 Creatinine 0.66 Anesthesia Exam O2 Sat Height 1.68 m Weight 62.3 kg Height: 5'7 Weight: 138 lbs NPO (# of Hours): MN Pain Scale: 0 - HEENT Pupil (Motor): Pupils equal, EOMI Mallampati: II Teeth: Normal Oral Opening: Greater than 3 - PRODUCTION OPERATOR LOC: Oriented PRODUCTION OPERATOR Motor: Normal RUE, Normal LUE, Normal RLE, Normal LLE, Normal Face PRODUCTION OPERATOR Sensory: Normal: RUE, LUE, RLE, LLE, Face - Cardiac Rhythm: Regular Murmur: None JVD: No Carotid Bruit: No - Pulmonary Breath Sounds: bilateral Clear Respiratory Effort: Symmetrical Anesthesia Assess/Plan ASA Score: 2 Modified [place] Scale for Level of Consciousness: Cooperative, oriented, and tranquil Anesthetic Plan: Regional Monitoring Plan: Standard Monitors Recovery Plan: PACU (Discussed SAB, possible GA, agrees to proceed)
[2018-03-04 11:33] LABS: Basophils % 0.4 %; Eosinophils # 0.1 K/mcL (0.0-0.6); Eosinophils % 1.1 %; Hematocrit 31.8 % (35.3-44.9); Hemoglobin 10.8 g/dL (11.5-15.4); Immature Granulocytes % 1.7 % (0-4); Lymphocytes # 2.5 K/mcL (0.6-4.6); Lymphocytes % 22.7 %; Mean Corpuscular Hemoglobin 30.7 pg (28.0-33.3); Mean Corpuscular Volume 90.3 fL (83.0-100.0); Mean Platelet Volume 11.8 fL (9.4-12.4); Monocytes # 0.5 K/mcL (0.0-1.3); Monocytes % 4.9 %; Neutrophils # 7.7 K/mcL (1.6-8.9); Platelet Count 222 K/mcL (140-400); Red Blood Count 3.52 M/mcL (3.82-4.97); Red Cell Distribution Width 13.2 % (11.5-14.5); Segmented Neutrophils % 69.2 %
--- NOTE | 2018-03-04 11:37 | OB/GYN History & Physical ---
Date of Encounter: 03/04/18 Time of Encounter: 11:35 Assessment and Plan (1) 39 weeks gestation of Current visit: Yes Status: Acute (2) Status post repeat low transverse section Current visit: No Status: Chronic Risk and benefits of repeat low transverse section were discussed. History of Present Illness HPI: Ms. Arriaga is a 32 year old female Patient is 32-year-old 6 para 4 AB 1 white female who enters for repeat section. She has had minimal care. She initially saw Dr. Ro earlier in is established suppress menses. She denies any care since that time. She reports been going to the emergency room for any problems that she had. She denies spontaneous rupture membranes, vaginal bleeding, contractions, and reports active fetus. Past Med Surg Social Fam HX - Past Medical History Medical history: no medical history Psychiatric history: no psych history - Past Surgical History Surgical History: - Social History Smoking Status: Former smoker Smokeless Tobacco Status: No Alcohol use: none Drug use: none - Family History Maternal Grandmother Adopted: No Living Status: Still Living Hx Family Cancer: Yes (colon) Mother Living Status: Still Living Hx Family Cardiac Disorders: Yes (mitral valve prolapse) Obstetrical History - Pregnancies : 6 Para: 4 Ab's: 1 Medications and Allergies 3 Allergy/AdvReac Type Severity Reaction Status Date / Time iron AdvReac Vomiting Verified 08/09/15 06:13 Review of System OB All systems PM: reviewed and no additional remarkable complaints except as stated - Genitourinary Genitourinary: amenorrhea - Menstruation Menstruation: amenorrhea Exam - Constitutional Constitutional: well developed, well nourished, no acute distress, average body habitus - HEENT HEENT: Normocephaly - Neck Neck exam: full ROM - Lungs Respiratory exam: CTAB - Cardiovascular Cardiovascular exam: RRR - Abdomen Abdomen: Present: bowel sounds normal, gravid, non tender - Extremities Extremities exam: full ROM Deep Tendon Reflex Grade: 2+ Normal - Uterus Uterus exam: Present: enlarged Results All other labs normal. - Attending Attestation anthony alexandra md facog
[2018-03-04] MEDS ORDERED: *HR* Phenylephrine 10 MG/ML VIAL ONE (11:46)
[2018-03-04] MEDS ORDERED: Morphine Sulfate/PF 5mg/10mL Vial ONE (11:46)
[2018-03-04] MEDS ORDERED: *HR* FentaNYL (PF) 100 MCG/2 ML VIAL ONE (11:46)
[2018-03-04] MEDS ORDERED: *HR* Oxytocin 10 UNIT/ML VIAL IM ONE (11:46)
[2018-03-04 11:58] LABS: Amphetamine Screen,Urine Negative ng/mL (Cutoff=1000); Barbiturate Screen,Urine Negative ng/mL (Cutoff=200); Benzodiazepines Screen,Urine Negative ng/mL (Cutoff=200); Cannabinoid Screen,Urine Negative ng/mL (Cutoff = 50); Cocaine Screen,Urine Negative ng/mL (Cutoff= 300); Opiate Screen,Urine Negative ng/mL (Cutoff=300); Phencyclidine Screen,Urine Negative ng/mL (Cutoff=25)
[2018-03-04 12:09] LABS: HIV-1&2 Antibody & p24 Ag Nonreactive (Nonreactive); Hepatitis B Surface Antigen Nonreactive (Nonreactive)
--- NOTE | 2018-03-04 12:41 | Anesthesia Procedures ---
Date of Encounter: 03/04/18 Time of Encounter: 12:39 Procedures: Anesthesia - Epidural/Spinal Patient ID/Chart reviewed: Yes Patient examined: Yes OB Eval: Gestational age: 39 OB Eval: : 6 OB Eval: Hx Para: 4 OB Eval: Dilated at (cm): 2 OB Eval: Contractions: Non-stressed pattern Consent Obtained: Yes Supplemental Oxygen: Nasal Cannula Supplemental Oxygen Rate (L/min): 3 Site Prep: Aseptic Technique, Sterile prep and drape, 0.5% Chlorhexidine/Alcohol Patient position: upright Local Anesthetic: Lidocaine 1% Amount of Local Anesthetic used: 3 Interspace Used: L2-L3 Loss of Resistance (KATE): No Blood: No CSF: Yes (clear x 4 quads) Paresthesia: No Spinal Needle Gauge: 25 Spinal Dose: marcaine 12 mg duramorph .25mg, fentanyl 10 mcg Procedure: aseptic, tolerated well, effective Vitals + FHT's: 112/70 42 16 fht 133
--- NOTE | 2018-03-04 13:36 | OB/GYN Procedure Note ---
Section - Date of procedure: 03/04/18 Preop diagnosis: desires repeat Post-op diagnosis: same Procedure: primary low transverse Surgeon: Cole Davis Estimated blood loss (cc): 500 Was there an dietetic assistant present: No Tip Fixer: Florencio Mak Anesthesia Type: Spinal section complications: none Disposition: PACU Specimens: Placenta - (s) Infant A Delivery Date: 03/04/18 Delivery Time: 12:32 Presentation: vertex Position: NGHIA Gender: Female Viability: Viable Pounds: 7 Ounces: 1 at 1 minute: 8 at 5 minutes: 9 Specimens collected: cord blood Placenta: complete extraction Cord: nuchal reduced - Narrative Narrative: Patient was taken to the operating room. After satisfactory spinal anesthesia was achieved, patient placed in supine position, Aponte catheter inserted, and prepped and draped as usual manner. After appropriate timeout, the abdomen was entered standard Maylard incision. The Priya retractor was placed. Peritoneum overlying the lower uterine segment was incised in U-shaped fashion. The uterine cavity was entered sharply and extended laterally. Membranes ruptured yielding clear fluid. With fundal pressure the head was delivered. Infant suctioned upon delivery of the head. Nuchal cord 1 that was loose was relieved. The remainder the was delivered, umbilical cord clamped and cut, and infant handed to nursery staff for further evaluation. Placenta was removed and sent to pathology for analysis. Uterus was closed in a single layer using 0 Monocryl. The retractor was removed. The abdomen was closed standard fashion using a 0 Vicryl on the fascia and 3-0 Monocryl in the skin. Sterile dressing was applied. Patient did well was taken to recovery in satisfactory condition. Counts were correct.
[2018-03-04] MEDS ORDERED: Sennosides 8.6 MG TABLET PO PRN (15:28)
[2018-03-04] MEDS ORDERED: Metoclopramide 10 MG/2 ML VIAL IVP PRN (15:28)
[2018-03-04] MEDS ORDERED: Ondansetron 4 MG/2 ML VIAL IVP PRN (15:28)
[2018-03-04] MEDS: Simethicone 80 MG TAB.CHEW PO PRN (15:46)
[2018-03-04] MEDS: *HR* OxyCODONE/APAP 5/325 TABLET PO PRN ×2 (15:46→21:48)
[2018-03-04] MEDS: Ibuprofen 600 MG TABLET PO PRN (18:50)
[2018-03-05] MEDS: Ibuprofen 600 MG TABLET PO PRN ×3 (01:02→18:28)
[2018-03-05] MEDS: *HR* OxyCODONE/APAP 5/325 TABLET PO PRN ×4 (03:50→22:55)
[2018-03-05 04:35] LABS: Basophils # 0.1 K/mcL (0.0-0.2); Basophils % 0.4 %; Eosinophils # 0.2 K/mcL (0.0-0.6); Eosinophils % 1.3 %; Hematocrit 26.4 % (35.3-44.9); Immature Granulocytes % 0.6 % (0-4); Lymphocytes # 2.4 K/mcL (0.6-4.6); Lymphocytes % 16.5 %; Mean Corpuscular HGB Conc 34.1 g/dL (31.6-35.5); Mean Corpuscular Hemoglobin 30.5 pg (28.0-33.3); Mean Corpuscular Volume 89.5 fL (83.0-100.0); Mean Platelet Volume 11.2 fL (9.4-12.4); Monocytes # 0.6 K/mcL (0.0-1.3); Monocytes % 4.3 %; Platelet Count 191 K/mcL (140-400); Red Blood Count 2.95 M/mcL (3.82-4.97); Red Cell Distribution Width 13.1 % (11.5-14.5); Segmented Neutrophils % 76.9 %
[2018-03-05] MEDS: Simethicone 80 MG TAB.CHEW PO PRN (06:39)
[2018-03-05] MEDS: Prenatal Vit/FA 1 EACH TABLET PO SCH (09:01)
[2018-03-05 09:50] LABS: Rubella IgG Antibody POSITIVE (POSITIVE); Varicella Zoster IgG Antibody Positive
--- NOTE | 2018-03-05 10:13 | OB/GYN Progress Note ---
Date of Encounter: 03/05/18 Time of Encounter: 10:16 - Assessment and Plan (1) Anemia of the [place] Current Visit: Yes Status: Acute Asymptomatic, VSS, patient declines Iron due to intolerance. Will discuss Floradix and other nutritional supplementations prior to discharge (2) Breast feeding status of mother Current Visit: Yes Status: Acute No problems currently (3) Status post repeat low transverse section Current Visit: No Status: Chronic Meeting milestones appropriately; continue routine post-op and care; anticipate discharge home tomorrow Subjective - Subjective Principal diagnosis: Repeat C/S Interval history: S/P RCS, < 24 hurs Incisional pain not relieved with narcotics, provided ice, discussed expectations for pain control with CS Lochia light and without clots VSS Voiding without difficulty without difficulty Tolerating regular diet Bowel sounds present Anticipate discharge home tomorrow with Patient reports: appetite normal, voiding normally, pain well controlled ( burning incision pain; ice provided), ambulating normally : doing well, nursing well Objective - Vital Signs Latest vital signs: Vital Signs Temp Pulse Pulse Resp BP Pulse Ox 03/05/18 07:40 97.9 F 81 12 103/65 95 03/05/18 04:00 97.9 F 74 14 107/63 96 03/05/18 01:05 97.5 F L 65 14 107/64 97 03/04/18 22:07 97.6 F 65 17 111/61 97 03/04/18 18:30 98.1 F 60 14 114/68 98 03/04/18 17:30 98.0 F 99 55 14 114/68 99 03/04/18 16:30 97.4 F L 57 57 14 101/62 98 03/04/18 16:00 97.7 F 50 50 12 108/59 100 03/04/18 15:30 97.7 F 48 55 16 111/68 99 Intake and Output 03/04/18 03/05/18 03/05/18 23:59 07:59 15:59 Intake Total 420 / 420 Output Total 700 / 700 1000 / 1000 Balance -700 / -700 -580 / -580 Intake: Oral 420 / 420 Output: Catheter 700 / 700 1000 / 1000 - Exam Lungs: bilateral: normal Chest: Normal S1, Normal S2 Abdomen: Present: soft, tenderness (upon palpation) Incision: Present: dry (BILLIE drain, clean, dry, drainage circled) Uterus: Present: normal, firm Fundal Height: 0 (at U) - Labs Labs: Laboratory Results - last 24 hr 03/04/18 03/04/18 03/04/18 10:28 10:28 10:29 WBC 11.1 RBC 3.52 L Hgb 10.8 L Hct 31.8 L MCV 90.3 MCH 30.7 MCHC 34.0 RDW 13.2 Plt Count 222 MPV 11.8 Immature Gran % 1.7 Seg Neutrophils % 69.2 Lymphocytes % 22.7 Monocytes % 4.9 Eosinophils % 1.1 Basophils % 0.4 Neutrophils # 7.7 Lymphocytes # 2.5 Monocytes # 0.5 Eosinophils # 0.1 Basophils # 0.0 Urine Opiates Screen Ur Barbiturates Screen Ur Phencyclidine Scrn Ur Amphetamines Screen U Benzodiazepines Scrn Urine Cocaine Screen U Marijuana (THC) Screen T.pallidum Ab Interpret Negative Hep Bs Antigen Nonreactive HIV Ag/Ab Combo Qual Nonreactive Rubella IgG Antibody POSITIVE VZV IgG Antibody Positive Blood Type 03/04/18 03/04/18 03/05/18 10:29 11:05 04:16 WBC 14.3 H RBC 2.95 L Hgb 9.0 L D Hct 26.4 L MCV 89.5 MCH 30.5 MCHC 34.1 RDW 13.1 Plt Count 191 MPV 11.2 Immature Gran % 0.6 Seg Neutrophils % 76.9 Lymphocytes % 16.5 Monocytes % 4.3 Eosinophils % 1.3 Basophils % 0.4 Neutrophils # 11.0 H Lymphocytes # 2.4 Monocytes # 0.6 Eosinophils # 0.2 Basophils # 0.1 Urine Opiates Screen Negative Ur Barbiturates Screen Negative Ur Phencyclidine Scrn Negative Ur Amphetamines Screen Negative U Benzodiazepines Scrn Negative Urine Cocaine Screen Negative U Marijuana (THC) Screen Negative T.pallidum Ab Interpret Hep Bs Antigen HIV Ag/Ab Combo Qual Rubella IgG Antibody VZV IgG Antibody Blood Type O NEGATIVE
[2018-03-05] MEDS ORDERED: Rho Immune Globulin 1,500 UNIT SYRINGE IM ONE (16:00)
[2018-03-05] MEDS ORDERED: Lanolin 7 G OINT...G. TP PRN (23:37)
[2018-03-06] MEDS: Ibuprofen 600 MG TABLET PO PRN (03:30)
[2018-03-06] MEDS: *HR* OxyCODONE/APAP 5/325 TABLET PO PRN (06:48)
[2018-03-06 08:24] VITALS: BP 113/65
[2018-03-06] MEDS: Prenatal Vit/FA 1 EACH TABLET PO SCH (08:34)
--- NOTE | 2018-03-06 09:12 | Discharge Summary ---
Date of Encounter: 03/06/18 Time of Encounter: 09:09 - Discharge Diagnosis (1) Status post repeat low transverse section Priority: Primary Status: Chronic Comments: Stable POD#2, Pain well managed on po pain medication, no bowel or bladder concerns, breast and bottle feeding, desires discharge. (2) anemia Priority: Secondary Status: Acute Comments: Pt states allergy to iron. refuses supplementation - Discharge Medications Prescriptions: OxyCODONE/APAP 5/325 [Percocet 5/325 MG] 1 each PO Q4HR PRN 5 Days #20 tablet PRN Reason: Moderate pain 4-6 Ibuprofen [Motrin] 600 mg PO Q6HR PRN #60 tablet PRN Reason: Cramping Docusate [Colace] 100 mg PO BID #60 capsule Home Medications: Docusate [Colace] 100 mg PO BID #60 capsule 03/06/18 [Rx] Ibuprofen [Motrin] 600 mg PO Q6HR PRN #60 tablet 03/06/18 [Rx] Lanolin [Lansinoh] 1 appl TP TID PRN oint...g. 03/06/18 [Rx] OxyCODONE/APAP 5/325 [Percocet 5/325 MG] 1 each PO Q4HR PRN 5 Days #20 tablet [Rx] Vit/FA 1 each PO DAILY tablet 03/06/18 [Rx] Allergies/Adverse Reactions: 3 Allergy/AdvReac Type Severity Reaction Status Date / Time iron AdvReac Vomiting Verified 08/09/15 06:13 Data Procedures and tests throughout hospitalization: Laboratory Tests 03/04/18 03/04/18 03/04/18 10:28 10:28 10:29 WBC 11.1 RBC 3.52 L Hgb 10.8 L Hct 31.8 L MCV 90.3 MCH 30.7 MCHC 34.0 RDW 13.2 Plt Count 222 MPV 11.8 Immature Gran % 1.7 Seg Neutrophils % 69.2 Lymphocytes % 22.7 Monocytes % 4.9 Eosinophils % 1.1 Basophils % 0.4 Neutrophils # 7.7 Lymphocytes # 2.5 Monocytes # 0.5 Eosinophils # 0.1 Basophils # 0.0 Urine Opiates Screen Ur Barbiturates Screen Ur Phencyclidine Scrn Ur Amphetamines Screen U Benzodiazepines Scrn Urine Cocaine Screen U Marijuana (THC) Screen T.pallidum Ab Interpret Negative Hep Bs Antigen Nonreactive HIV Ag/Ab Combo Qual Nonreactive Rubella IgG Antibody POSITIVE VZV IgG Antibody Positive Blood Type Screen Baby's Blood Type Mother's Blood Type Rhogam Indicated Rhogam Req for Mother 03/04/18 03/04/18 03/05/18 10:29 11:05 04:16 WBC 14.3 H RBC 2.95 L Hgb 9.0 L D Hct 26.4 L MCV 89.5 MCH 30.5 MCHC 34.1 RDW 13.1 Plt Count 191 MPV 11.2 Immature Gran % 0.6 Seg Neutrophils % 76.9 Lymphocytes % 16.5 Monocytes % 4.3 Eosinophils % 1.3 Basophils % 0.4 Neutrophils # 11.0 H Lymphocytes # 2.4 Monocytes # 0.6 Eosinophils # 0.2 Basophils # 0.1 Urine Opiates Screen Negative Ur Barbiturates Screen Negative Ur Phencyclidine Scrn Negative Ur Amphetamines Screen Negative U Benzodiazepines Scrn Negative Urine Cocaine Screen Negative U Marijuana (THC) Screen Negative T.pallidum Ab Interpret Hep Bs Antigen HIV Ag/Ab Combo Qual Rubella IgG Antibody VZV IgG Antibody Blood Type O NEGATIVE Screen Baby's Blood Type Mother's Blood Type Rhogam Indicated Rhogam Req for Mother 03/05/18 10:00 WBC RBC Hgb Hct MCV MCH MCHC RDW Plt Count MPV Immature Gran % Seg Neutrophils % Lymphocytes % Monocytes % Eosinophils % Basophils % Neutrophils # Lymphocytes # Monocytes # Eosinophils # Basophils # Urine Opiates Screen Ur Barbiturates Screen Ur Phencyclidine Scrn Ur Amphetamines Screen U Benzodiazepines Scrn Urine Cocaine Screen U Marijuana (THC) Screen T.pallidum Ab Interpret Hep Bs Antigen HIV Ag/Ab Combo Qual Rubella IgG Antibody VZV IgG Antibody Blood Type Screen NEGATIVE Baby's Blood Type O RH POSITIVE Mother's Blood Type O RH NEGATIVE Rhogam Indicated YES Rhogam Req for Mother 1 Labs on day of discharge: Labs from last 24 hours 03/05/18 03/04/18 10:00 10:28 T.pallidum Ab Interpret Negative Rubella IgG Antibody POSITIVE VZV IgG Antibody Positive Screen NEGATIVE Baby's Blood Type O RH POSITIVE Mother's Blood Type O RH NEGATIVE Rhogam Indicated YES Rhogam Req for Mother 1 Date of admission: 03/04/18 09:51 Primary care physician: PCP NONE Consults: 03/04/18 15:28 Consult to Staff Field Engineer (W&C) [CONS] Routine Reason For Exam: Reason for SW Consult: limited care Discharging clinician: Ludivina Justice Anticipated date of discharge: 03/06/18 - Patient Status Disposition: Home, Self-Care Functional capacity at discharge: independent ambulation Overall status at discharge: patient is back to baseline - Discharge Instructions Instructions: Anemia (GEN) Follow Up With: NONE,PCP [Primary Care Provider] - Cole Davis MD [Partnered Physician] - - Diet and Activity Activity: resume usual activities as tolerated Diet: regular diet Hospital Course Reason for admission: section, IUP at term Delivery: section Other procedures: none complications: none Discharge diagnosis: IUP at term delivered baby: female Hospital course: Section - Date of procedure: 03/04/18 Preop diagnosis: desires repeat Post-op diagnosis: same Procedure: primary low transverse Surgeon: Cole Davis Estimated blood loss (cc): [address] office assistant present: Kirsten Supervisor Grounds: Florencio Mak Anesthesia Type: Spinal section complications: none Disposition: PACU Specimens: Placenta - (s) Infant A Delivery Date: 03/04/18 Delivery Time: 12:32 Presentation: vertex Position: NGHIA Gender: Female Viability: Viable Pounds: 7 Ounces: 1 at 1 minute: 8 at 5 minutes: 9 Specimens collected: cord blood Placenta: complete extraction Cord: nuchal reduced Stable in PP and appropriate for discharge OAARS reviewed. Time Attestation: Total time spent providing and/or coordinating discharge services: Time Spent: Less than 30 minutes - VTE Documentation of Mechanical Device: Intermittent pneumatic compression device Exam - Constitutional Vitals: Temp Pulse Resp BP Pulse Ox 97.5 F L 76 16 113/65 98 03/06/18 08:23 03/06/18 08:23 03/06/18 08:23 03/06/18 08:23 03/05/18 19:40 General appearance IM: A&O X 3 - Respiratory Respiratory exam: Present: CTAB - Cardiovascular Cardiovascular exam IM: Present: RRR - GI/Abdominal GI/Abdominal exam IM: soft Incision: dressed (BILLIE in place. ) - Uterine Tone: Firm Uterus Position: 3 Fingers Below Umbilicus - Extremities Exam Extremities exam IM: Present: normal capillary refill, normal inspection - Neurological Exam Neurological exam: normal gait, oriented X3 - Psychiatric Additional comments: Reports good mood.
== END 2018-03-06 10:45 | disposition home or self-care (01) | DRG 540 ==
LOC: 1NENULAB 09:51 → 1NENUOBS 15:27
PROVIDERS: ADMIT Obstetrics & Gynecology; ATTEND Obstetrics & Gynecology